=== PATIENT | female | born 1965 | race Caucasian/White ===

== ENCOUNTER 2016-07-08 03:13 | Inpatient (IN) | payer OTHER ==
[~2016-07-08] VITALS: Ht 157.5 cm; Wt 83.9 kg
[~2016-07-08 03:13] MED LIST: ARIPIPRAZOLE2 MG PO; BUPROPION XL150 MG PO; DIAZEPAM2 M1 PO; DICLOFENAC SODI75 M2 PO; ESCITALOPRAM OX20 MG PO; HYDROCHLOROTHIA25 M1 PO; HYDROCODON-ACE1 EAC3 PO; MELOXICAM15 M1 PO; METOPROLOL SUCC50 M2 PO; TRAZODONE HCL100 M1 PO
--- NOTE | 2016-07-08 09:40 | Operative Report ---
Operative/Inv Procedure Report Surgery Date: 07/08/16 Name of Procedure: Right total knee arthroplasty Pre-Operative Diagnosis: Right knee primary osteoarthritis Post-Operative Diagnosis: Same Estimated Blood Loss: less than 50ml Surgeon/Still Operator Helper: RADHA GOODWIN,Paulo MORALES Anesthesia: block Implants: Juan Antonio triathlon total knee system-size 3 femur, size 2 tibia, 11 mm polyethylene cruciate retaining, 27 patella Drains: None Specimens: Femoral, tibial, patellar bone Microbiology: Urinalysis Tourniquet: 56 minutes Complications: None Condition: Stable Operative Indication: Patient is a 50-year-old woman with a fairly long history of gradually worsening right knee symptoms that have interfere with normal activities of daily living. She underwent conservative measures including medications and injections and activity modification. Unfortunately she had persistent and increasing symptoms. This warranted discussion concerning total knee arthroplasty. Patient wished to proceed with this after discussion of risks, benefits and expectations which included but were not limited to persistent knee pain, need for subsequent surgery, infection, DVT, injury to blood vessel or nerve, anesthesia risks, wearing of the polyethylene secondary to her age and activity level. She wished to proceed with total knee arthroplasty. Operative/Procedure Note Note: Patient was brought to the operating room and transferred to the operating table. Once under appropriate anesthesia the right lower extremity was prepped and draped in standard fashion. Preoperative IV antibiotics were given prophylactically. Right lower extremity was elevated exsanguinated and tourniquet was inflated to 300 mm of pressure. A standard anterior incision was made for anticipated medial parapatellar approach the knee. Incision was taken down sharply to the retinaculum. A medial retinacular approach was used with a minimal extension into the quadriceps tendon. Osteophytes were excised. Patient had end-stage degenerative changes of the medial compartment and moderate changes the lateral compartment and mild changes of the patello femoral compartment. Osteophytes were excised laterally medially. I then flexed the knee and used the intramedullary drill to enter the distal femur for the intramedullary guide. Anticipated 6 valgus cut and 10 mm thickness cut was planned. This cut was made after protecting soft tissues. The femur was incised to a size 3. The chamfer cuts were made for a size 3 femur. I then turned my attention to the tibia. The external tibial alignment guide was used. Once I was satisfied with the alignment of the cutting jig, I protected soft tissues medially laterally and proceeded with my tibial cut. I recessed the PCL and excised remnants of the medial lateral meniscal tissues. The tibia was then sized to a size 2. The trial was then completed. I was satisfied with the stability of the knee and the soft tissue balancing though the definitive size of the trial polyethylene would be determined later on. Took the knee through range of motion. I prepared the patella after measuring and removing the appropriate thickness and replacement with a 27 patella. 3 lug holes were drilled in standard fashion. After taking the knee through range of motion, I marked the tibial rotation and drilled my 2 lug holes for the femur area and I removed all trial components. I finished preparation tibia with the tibial punch of the appropriate size. I then removed all trial components and instrumentation and copiously irrigated the tibial femoral and patellar surfaces. I did prepare the anterior chamfer bone that was removed from the femur to plug the distal femur to minimize postoperative hemarthrosis and swelling. Cement was being mixed on the back table. Once the cement was ready I applied to the dry clean bony surfaces of the tibia. The size 2 tibial component was impacted in place and excess cement was removed with curettes. Cement was applied to the dry clean bony surfaces of distal femur. The size 3 femur was impacted in place with all excess cement removed with curettes. I placed a 9 mm polyethylene insert and took the knee out to full extension. Cement was applied to the dry clean bony surfaces of the patella. The size 27 patella was impacted in place and excess cement was removed with a knife. As the cement was hardening I did a periarticular pericapsular injection of a cocktail which included ropivacaine with epinephrine and Toradol for postoperative pain and inflammation management. Once cement was hardening took the knee through range of motion. Small pieces of excess cement were removed with osteotome. I trialed a 11 mm insert as well. I was satisfied with this. I thought there was slight patellar tilt during my trialing and therefore I performed a lateral release in standard fashion from an extra articular vantage point. I was satisfied with the patellar tracking. I was satisfied with the 11 mm cruciate retaining polyethylene insert. I removed the trial and copiously irrigated the tibial tray to make sure there was no soft tissue, bone fragments or cement fragments within the tibial tray. Once this was confirmed I impacted the definitive size 11 mm cruciate retaining polyethylene in place and the locking mechanism was confirmed. The knee was ranged. Full extension. Full flexion to gravity without impingement. No evidence of mid flexion instability copious irrigation followed. Tourniquet was deflated at 56 minutes. Copious irrigation followed every level of closure. There was no need for a drain. Hemostasis was obtained with cautery. Retinaculum and minimal extension into the quadriceps tendon were closed with interrupted #1 Vicryl sutures. Subcutaneous tissues closed in 2 layers with 2-0 Vicryl and skin was closed with a running 3-0 Vicryl suture with the knee in flexion. Appropriate dressings were applied and patient was awakened and taken to recovery room in good condition. No intraoperative complications. Blood loss was less than 50 mL due to tourniquet Discharge Disposition: PACU
--- NOTE | 2016-07-08 13:00 | NUR ---
PT ARRIVED TO FLOOR VIA STRETCHER FROM PACU
--- NOTE | 2016-07-08 13:15 | PN- Orthopedic ---
Subjective Subjective: Post op check Awake, alert Has not been oob yet post op Pain well controlled after nerve block in recovery room No nausea, hungry Objective Vital Signs and I&Os VSS, afebrile Physical Exam: carmona output 250 in 2 hours General: alert and oriented times three chest: clear anteriorly bilaterally, RRR Abd: soft, good bs Ext: warm, no edema, positive sensate, good FARZANEH 5/5 RLE Wound: dressed, dry ice pack in place Assessment/Plan Assessment/Plan 50 yo female s/p R TKR pain mgmt - On Q PT - wbat coumadin 5 mg ordered dc carmona in am post op abx for 24 hrs Core Measures/Miscellaneous Carmona Catheter Date In: 07/08/16 Still Needed? Yes (post op 24 hrs) Venous Thromboembolism VTE Risk Factors: Age > 40, Surgery VTE Contraindications: No Contraindications VTE Prophylaxis Ordered Inpt: Mech & Pharm VTE Diagnosis: No Beta Eloy Is Beta Eloy a Home Med? Yes If Yes, Was This Ordered Today? Yes Antibiotics Is Patient on Antibiotics? Yes If Yes: prophylaxis (24 hrs post op)
[2016-07-08 13:22] VITALS: BP 92/60
[2016-07-08 14:55] VITALS: BP 100/60
[2016-07-08 15:51] VITALS: BP 108/64
[2016-07-08 17:49] VITALS: BP 106/72
[2016-07-08 19:42] VITALS: BP 112/62
[2016-07-08 21:26] VITALS: BP 128/70
[2016-07-09 01:39] VITALS: BP 128/70
[2016-07-09 07:31] VITALS: BP 130/70
--- NOTE | 2016-07-09 08:18 | PN- Orthopedic ---
See Addendum Subjective Subjective: NAEO. Patient states her nicotine patch is not enough. Also, she c/o seasonal allergies not well treated with Claritin. No further c/o. Pain controlled. PT attempted to ambulate patient yesterday but she was too unsteady. Tolerating PO without n/v. +flatus, no BM. Denies CP/SOB. Objective Vital Signs and I&Os Vital Signs Date Time Temp Pulse Resp B/P Pulse O2 O2 Flow FiO2 Ox Delivery Rate 07/09 0731 98.9 89 20 130/70 94 Room Air 07/09 0139 99.0 100 20 128/70 94 Room Air 07/08 2126 98.1 93 20 128/70 93 Room Air 07/08 1942 98.3 88 20 112/62 90 Room Air 07/08 1749 99.0 79 20 106/72 91 Room Air 07/08 1551 97.9 85 20 108/64 92 Room Air 07/08 1322 98.8 68 18 92/60 90 Room Air 07/08 1300 90 Room Air Intake & Output 07/09 1600 07/09 0800 07/09 0000 07/08 1600 07/08 0800 07/08 0000 Intake Total 960 Output Total 350 Balance 610 Intake, IV 600 Intake, Oral 360 Output, Urine 350 Patient 185 lb Weight Physical Exam: General: NAD, comfortable, A&Ox3 Chest: NRD, breathing comfortably on RA. RRR. Abdomen: soft, nontender, nondistended. Ext: Right knee dressing with 1 spot of strikethrough, otherwise, c/d/i. Right thigh On-Q pump in place. RLE compartments soft. No calve swelling/TTP, neurovascularly intact bilateral lower extremities Current Medications: Current Medications Sig/Carmen Start time Last Medication Dose Route Stop Time Status Admin Al Hydroxide/Mg 30 ML Q6P PRN 07/08 1315 AC Hydroxide PO Aripiprazole 2 MG DAILY 07/08 1000 AC PO Bupropion HCl 300 MG AT BEDTIME 07/080 AC 07/08 PO 2055 Bupropion HCl 150 MG DAILY 07/08 1000 AC PO Dextrose/Lactated 1,000 ML Q13H 07/08 1315 AC 07/08 Ringer's IV 2233 Diazepam 2 MG TID PRN 07/08 1000 AC PO Docusate Sodium 100 MG DAILY NEEDED PRN 07/08 1315 AC PO Escitalopram Oxalate 20 MG DAILY 07/09 1000 AC PO Hydrochlorothiazide 25 MG DAILY 07/08 1000 AC PO Hydromorphone HCl 2 MG .STK-MED ONE 07/08 1014 DC IM 07/08 1015 Loratadine 10 MG DAILY 07/08 1816 AC 07/08 PO 2055 Metoprolol Succinate 50 MG DAILY 07/08 1000 AC PO Morphine Sulfate 2 MG Q3P PRN 07/08 1315 AC IV Morphine Sulfate 4 MG Q1P PRN 07/08 1315 AC 07/09 IV 0202 Nicotine 14 MG DAILY 07/08 1000 AC 07/08 TOP 1637 Ondansetron HCl 4 MG Q6P PRN 07/08 1315 AC IV Oxycodone/ 1 TAB Q4P PRN 07/08 1315 AC Acetaminophen PO Oxycodone/ 2 TAB Q4P PRN 07/08 1315 AC 07/09 Acetaminophen PO 0622 Polyethylene Glycol 17 GM DAILY NEEDED PRN 07/08 1315 AC PO Ropivacaine 500 ML ONCE ONE 07/08 0845 DC ON-Q Ball 1 BAG INJ 07/10 1044 Senna/Docusate Sodium 2 TAB AT BEDTIME NEED.. 07/08 1315 AC PO Trazodone HCl 100 MG QPM 07/08 2200 AC 07/08 PO 2055 Vancomycin HCl 1,000 MG ONCE ONE 07/08 1900 DC 07/08 Dextrose/Water 250 ML IV 07/08 1959 1836 Vancomycin HCl 1,000 MG ONCE 07/08 0000 DC Dextrose/Water 250 ML IV 07/08 2359 Warfarin Sodium 5 MG COUMADIN 1700 ONE 07/08 1700 DC 07/08 PO 07/08 1701 1648 Assessment/Plan Assessment/Plan 50yo F POD#1 s/p right TKA. AVSS, patient stable. - Pain control - Bowel regimen - PRN zofran - Change claritin to zyrtec for allergies - I/O's - DC IVF - f/u a.m. labs - f/u INR, dose coumadin for INR 2-3 - increase nicotine patch dose - OOB and ambulate with PT, WBAT - will d/w attending Core Measures/Miscellaneous Salazar Catheter Date In: 07/08/16 Venous Thromboembolism VTE Risk Factors: Age > 40, Surgery VTE Contraindications: No Contraindications VTE Prophylaxis Ordered Inpt: Mech & Pharm VTE Diagnosis: No Beta Eloy Is Beta Eloy a Home Med? Yes If Yes, Was This Ordered Today? Yes Antibiotics Is Patient on Antibiotics? No
[2016-07-09 08:43] LABS: ABSOLUTE BASOPHIL COUNT 0 /CUMM (0.0-0.2); ABSOLUTE EOSINOPHIL COUNT 0 /CUMM (0.0-0.7); ABSOLUTE GRANULOCYTE CT 8.9 /CUMM (1.4-6.5); ABSOLUTE LYMPH COUNT 2.1 /CUMM (1.2-3.4); ABSOLUTE MONOCYTE COUNT 0.8 /CUMM (0.10-0.60); BASOPHIL % 0.2 % (0.0-2.0); EOSINOPHIL % 0 % (0-5); HEMATOCRIT 36.2 % (37-47); MEAN CORPUSCULAR HGB 33.8 PG (27.0-31.0); MEAN CORPUSCULAR VOLUME 99.5 FL (81.0-99.0); PLATELET COUNT 228 /CUMM (130-400); RED BLOOD CELL CT 3.64 /CUMM (4.20-5.40); WHITE BLOOD CELL COUNT 11.9 /CUMM (4.8-10.8)
[2016-07-09 08:55] LABS: PT 10.4 SEC (9.4-12.5)
[2016-07-09] MEDS ORDERED: COLACE100 M1 PO (09:02)
[2016-07-09] MEDS ORDERED: VICODIN 5-3001 EACH PO (09:02)
[2016-07-09] MEDS ORDERED: COUMADIN5 M2 PO (09:02)
--- NOTE | 2016-07-09 09:03 | Patient Discharge Instructions ---
Discharge Instructions General Discharge Information You were seen/treated for: Right knee primary OA/DJD You had these procedures: 07/08/16 Right total knee replacement Watch for these problems: Redness, swelling, fever, signs of infection. Uncontrolled pain, Excessive bleeding. Decreased range of motion or unable to bear weight. Chest pain, shortness of breath. Call Surgeon to remove: Pio Do not soak the wound: Yes No bath, but you may shower: Yes Other wound care: Daily dressing changes Diet Continue normal diet: Yes Activity Activity Self Limited: Yes Activity Limited to: Weight bear as tolerated Additional ACTIVITY Info: Daily physical therapy Acute Coronary Syndrome Inclusion Criteria At DC or during hospital stay patient has or had the following: ACS DIAGNOSIS No Discharge Core Measures Meds if any: Prescribed or Continued at Discharge Meds if any: NOT Prescribed or Continued at Discharge Congestive Heart Failure Inclusion Criteria At DC or during hospital stay patient has or had the following: CHF DIAGNOSIS No Discharge Core Measures Meds if any: Prescribed or Continued at Discharge Meds if any: NOT Prescribed or Continued at Discharge Cerebrovascular accident Inclusion Criteria At DC or during hospital stay patient has or had the following: CVA/TIA Diagnosis No Discharge Core Measures Meds if any: Prescribed or Continued at Discharge Meds if any: NOT Prescribed or Continued at Discharge Venous thromboembolism Inclusion Criteria VTE Diagnosis No VTE Type NONE VTE Confirmed by (Test) NONE Discharge Core Measures - Per Current guidelines, there needs to be overlap - treatment for the first 5 days of Warfarin therapy. - If discharged on Warfarin prior to 5 days of - overlap therapy, the patient will need to be - assessed for post discharge needs including - *Post discharge parental anticoagulation - *Warfarin and/or parental anticoagulation education - *Follow up date to check INR post discharge At least 5 days overlap therapy as Inpatient No Meds if any: Prescribed or Continued at Discharge Note: Overlap Therapy is Warfarin and Anticoagulant Meds if any: NOT Prescribed or Continued at Discharge
--- NOTE | 2016-07-09 09:08 | Discharge Summary ---
Visit Information Visit Dates Admission Date: 07/08/16 Discharge Date: 07/10/16 Hospital Course Course Attending Physician: ANDREW GARCIA MD Primary Care Physician: GAIL KULKARNI MD Hospital Course: Patient admitted to floor following procedure below. Patient ambulated with PT upon arrival to the floor. Patient continued to progress well. Upon discharge patient is afebrile, tolerating diet, pain controlled, ambulating well with rolling walker and PT. Complications: None Allergies: Coded Allergies: milnacipran (From SAVELLA) (07/01/16) moxifloxacin (From AVELOX) (07/01/16) Significant Procedures: 07/08/16 right total knee arthroplasty Disposition Summary Disposition Principal Diagnosis: Right knee primary DJD/OA Additional Diagnosis: None Discharge Disposition: home health services Discharge Instructions General Discharge Information Code Status: Full Code Patient's Diet: Resume normal diet Patient's Activity: Weightbearing as tolerated Daily physical therapy Follow-Up Instructions/Appts: Call office to schedule/confirm appointment Medications at Discharge Discharge Medications: Stop taking the following medications: Hydrocodone/Acetaminophen (Hydrocodon-Acetaminoph 7.5-325) 1 EACH TABLET ORAL DAILY as needed for PAIN Qty = 60 Continue taking these medications: Diazepam (Diazepam) 2 MG TABLET 1 Tablet ORAL 4 TIMES A DAY Qty = 21 Hydrochlorothiazide (Hydrochlorothiazide) 25 MG TABLET 1 Tablet ORAL DAILY Qty = 30 Bupropion HCl (Bupropion XL) 150 MG TAB.ER.24H 1 Tablet ORAL Every Morning Qty = 270 Bupropion HCl (Bupropion XL) 150 MG TAB.ER.24H 2 Tablet ORAL AT BEDTIME Qty = 270 Trazodone HCl (Trazodone HCl) 100 MG TABLET 1 Tablet ORAL Every night Qty = 90 Escitalopram Oxalate (Escitalopram Oxalate) 20 MG TABLET 1 Tablet ORAL DAILY Qty = 90 Aripiprazole (Aripiprazole) 2 MG TABLET 1 Tablet ORAL DAILY Qty = 90 Metoprolol Succinate (Metoprolol Succinate) 50 MG TAB.ER.24H 1 Tablet ORAL DAILY Qty = 30 Meloxicam (Meloxicam) 15 MG TABLET 1 Tablet ORAL DAILY Qty = 30 Diclofenac Sodium (Diclofenac Sodium) 75 MG TABLET.DR 1 Tablet ORAL TWICE DAILY Qty = 60 Start taking the following new medications: Warfarin Sodium (Coumadin) 5 MG TABLET 1 Tablet ORAL DAILY Qty = 14 No Refills Instructions: DOSE FOR INR 2-3 Docusate Sodium (Colace) 100 MG CAPSULE 1 Capsule ORAL TWICE DAILY as needed for CONSTIPATION Qty = 30 No Refills Hydrocodone/Acetaminophen (Vicodin Es 7.5-300 MG Tablet) 7.5 MG-300 MG TABLET 1-2 Tablet ORAL EVERY 4-6 HOURS NEEDED as needed for pain control Qty = 30 No Refills Instructions: take as directed. do not combine with tylenol. Copies To: CAYLA GOODWIN,GAIL [place]
[2016-07-09 09:35] VITALS: BP 118/70
[2016-07-09 14:24] VITALS: BP 122/84
[2016-07-09 22:40] VITALS: BP 140/80
[2016-07-10 06:30] VITALS: BP 150/76
[2016-07-10 07:37] VITALS: BP 150/76
[2016-07-10 08:01] LABS: ABSOLUTE BASOPHIL COUNT 0 /CUMM (0.0-0.2); ABSOLUTE EOSINOPHIL COUNT 0 /CUMM (0.0-0.7); ABSOLUTE LYMPH COUNT 2.4 /CUMM (1.2-3.4); ABSOLUTE MONOCYTE COUNT 0.7 /CUMM (0.10-0.60); BASOPHIL % 0.3 % (0.0-2.0); EOSINOPHIL % 0.1 % (0-5); HEMATOCRIT 35.5 % (37-47); MEAN CORPUSCULAR HGB 33.8 PG (27.0-31.0); MEAN CORPUSCULAR VOLUME 99.4 FL (81.0-99.0); MEAN PLATELET VOLUME 7.7 FL (7.4-10.4); PLATELET COUNT 234 /CUMM (130-400); RBC DISTRIBUTION WIDTH 13.2 % (11.5-14.5); RED BLOOD CELL CT 3.57 /CUMM (4.20-5.40); WHITE BLOOD CELL COUNT 13.1 /CUMM (4.8-10.8)
--- NOTE | 2016-07-10 08:16 | PN- Orthopedic ---
Subjective Subjective: Patient reporting no acute overnight events. She states that overall her pain is well controlled, but she is feeling increasing fatigue. She denies chest pain, shortness of breath, difficulty breathing. She denies nausea and vomiting. She has been out of bed ambulating with physical therapy, however she has yet to do stairs. She is eager to be discharged to home later today pending PT clearance. She has been voiding spontaneously, and she has moved her bowels. Objective Vital Signs and I&Os Vital Signs Date Time Temp Pulse Resp B/P Pulse O2 O2 Flow FiO2 Ox Delivery Rate 07/10 0737 87 150/76 07/10 0630 100.1 87 20 150/76 92 Room Air 07/10 0300 99.8 07/09 2240 100.6 85 20 140/80 94 07/09 1424 99.3 85 20 122/84 90 Room Air 07/09 1000 72 114/80 07/09 0935 98.7 79 20 118/70 96 Room Air Intake & Output 07/10 1600 07/10 0800 07/10 0000 07/09 1600 07/09 0800 07/09 0000 Intake Total 903 939 9953 1080 960 Output Total 388 079 9322 350 Balance 480 -320 1350 -170 610 Intake, IV 600 600 Intake, Oral 082 409 5692 480 360 Output, Urine 508 807 7985 350 Physical Exam: Gen.: Alert and oriented 3, no acute distress Cardiac: Regular rhythm and rate, S1s2 Pulmonary: Bilateral lung sounds clear to auscultation Abdomen: nonTender nondistended Extremities: Moves all extremities, distal sensation is grossly intact. Motor strength 5 out of 5 in plantar and dorsiflexion. Skin warm and well perfused. DP pulses palpable bilaterally. Bilateral calves soft and nontender. Surgical site. Right knee. Dressing dry and intact. Dressing changed today. Steri-Strips clean dry and intact. No drainage from incision. Mild erythema noted around incision, consistent with bruising. Dressing consisting of 4 x 4's and spandage reapplied. Assessment/Plan Assessment/Plan This is a 50-year-old female postoperative day 2 status post right total knee replacement. -Incentive spirometry encouraged -Continue current pain regimen -Follow-up a.m. labs, daily Coumadin, dose to INR between 2 and 3 -Continue out of bed, ambulation, physical therapy today -Plan for discharge to home today pending PT clearance -Will discuss with Cesar Komninakas, MD Core Measures/Miscellaneous Salazar Catheter Date In: 07/08/16 Venous Thromboembolism VTE Risk Factors: Age > 40, Surgery VTE Contraindications: No Contraindications VTE Prophylaxis Ordered Inpt: Mech & Pharm VTE Diagnosis: No Beta Eloy Is Beta Eloy a Home Med? Yes If Yes, Was This Ordered Today? Yes Antibiotics Is Patient on Antibiotics? No
[2016-07-10 08:22] LABS: PT 13.8 SEC (9.4-12.5)
--- NOTE | 2016-07-10 11:35 | RADIOLOGY REPORT ---
EXAMINATION: XR PORTABLE CHEST CLINICAL INFORMATION: Postoperative fever with leukocytosis. COMPARISON: None TECHNIQUE: Portable AP view of the chest was obtained. FINDINGS: Patient has a large body habitus. There are linear opacities of discoid atelectasis in the right and left lower lung. No airspace opacification, pulmonary edema or pleural effusion. Cardiac silhouette is normal in size. There is atherosclerotic calcification of the aortic arch. Bones are unremarkable. IMPRESSION: 1. No evidence of pneumonia. 2. There are linear opacities of discoid atelectasis within the lower lung zones.
[2016-07-10] MEDS ORDERED: VICODIN ES 7.51 EACH PO (13:28)
== END 2016-07-10 14:42 | disposition home health service (06) | DRG 470 ==
LOC: ENRESERVDT → ENRESERVTM → ENPENDDIS 03:13 → SDA 03:13 → 2NA 03:13 → SDA 07:00 → 2NA 12:46
PROVIDERS: Nurse Practitioner; Physician Assistant Surgical; ADMIT Orthopaedic Surgery
PROC: 0SRC0J9 Replacement of Right Knee Joint with Synthetic Substitute, Cemented, Open Approach (ICD-10-PCS; principal; 2016-07-08)
DX: M17.11 Unilateral primary osteoarthritis, right knee (principal); I10 Essential (primary) hypertension; F31.9 Bipolar disorder, unspecified; M79.7 Fibromyalgia; R53.82 Chronic fatigue, unspecified; F17.200 Nicotine dependence, unspecified, uncomplicated
CPT/HCPCS: 2NASP; 36415; 81001; 82436; 87086; 88305; 97110-GO; 97116-GO; 97161-GP; 97530-GO; C1713; J0171; J1885; J2405; J2795; J3370; J7060

== ENCOUNTER 2016-10-14 02:32 | Inpatient (IN) | payer OTHER ==
[~2016-10-14] VITALS: Ht 157.5 cm; Wt 82.6 kg
[~2016-10-14 02:32] MED LIST changes: +COLACE100 M1 PO; +COUMADIN5 M2 PO; +VICODIN 5-3001 EACH PO; +VICODIN ES 7.51 EACH PO
--- NOTE | 2016-10-14 10:28 | Operative Report ---
Operative/Inv Procedure Report Surgery Date: 10/14/16 Name of Procedure: Left total knee arthroplasty Pre-Operative Diagnosis: Left knee primary osteoarthritis Post-Operative Diagnosis: Same Estimated Blood Loss: less than 50ml Surgeon/Team Leader/Research Psychologist: RADHA GOODWIN,Paulo MORALES Anesthesia: block Implants: Juan Antonio triathlon total knee system Drains: None Specimens: Femoral, tibial, patellar bone Microbiology: Urine Tourniquet: 50 minutes Complications: None Condition: Stable Operative Indication: Patient is a 51-year-old woman with bilateral knee osteoarthritis. She had been treated for a long period of time with conservative measures. Unfortunately, as time went by her pain was not manageable with conservative treatment. She underwent right total knee arthroplasty in June. She recovered very well from this procedure and wanted to proceed with left total knee arthroplasty. Her x-rays showed severe osteoarthritis. Risks, benefits and expectations of the surgical procedure were discussed including but not limited to persistent knee pain, need for subsequent surgery, infection, DVT, injury to blood vessel or nerve, anesthesia risks. Operative/Procedure Note Note: Patient was brought to the operating room and transferred to the operating table. Once under appropriate anesthesia the left lower extremity was prepped and draped in standard fashion. Preoperative IV antibiotic's were given prophylactically. The left lower extremity was elevated exsanguinated and tourniquet was inflated. Standard anterior incision was made for anticipated medial parapatellar approach the knee. The incision was taken down sharply to the underlying retinaculum. A medial retinacular approach was used with minimal extension into the quadriceps tendon. Remnants of the medial lateral meniscal tissues were excised. Remnants of the ACL were excised. Retractors were placed medial and laterally. The drill was used to enter the intramedullary canal for the intramedullary guide for the distal femoral cut. 6 valgus cut was chosen. Cutting guide was placed and the soft tissues were protected and the distal femoral cut was made. The femur was then sized to a size 3. The size 3 cutting jig was and in place and the 4 cuts were made. I was satisfied with the preparation of distal femur. I then used an external tibial alignment guide and pin the cutting block for a neutral cut from medial to lateral and reproducing patient's posterior slow-paced on preoperative templating and intraoperative measurements. Soft tissues were protected medially laterally as well as posteriorly. The PCL retractor was placed and the PCL was recessed during this maneuver. The tibial cut was made. I then sized the tibia to a size 2. Trial was done with a size 2 tibia and a size 3 femur and a 9 mm polyethylene. I was satisfied with the symmetrical nature of the ligament balancing. I then turned my attention to the patella after osteophytes were excised from the posterior aspect of the knee in standard fashion using the osteotome followed by the curved curet. The patella was measured and the appropriate thickness was removed and then restored with a size 27 patella. The 3 lug holes were drilled and then the knee was taken through range of motion. I was satisfied with the stability and tracking of the patellofemoral articulation. I then removed all trial components after marking my rotation of tibia and drilled my 2 lug holes for the femur. I finished preparation of the tibia with the appropriate sized tibial punch. I then removed all instrumentation and copious irrigation the knee followed. I used the anterior chamfer bone of the distal femur to plug the hole in the femur to minimize postoperative hemarthrosis and postoperative swelling. Once the cement was ready it was applied to the dry clean bony surfaces of the tibia. The size 2 tibial component was impacted in place and excess cement was removed with curettes. Cement was applied to the dry clean bony surfaces of the distal femur and the size 3 femur was impacted in place and excess cement was removed with curettes. The 9 mm polyethylene was inserted and the knee was taken out to full extension pressurizing the bone cement interfaces. I then applied distal cement to the dry clean bony surfaces of the patella and the size 27 patella was impacted in place and excess cement was removed with a knife. As the cement was hardening I did a periarticular pericapsular injection of a cocktail which included ropivacaine with epinephrine and Toradol for postoperative pain and inflammation management. Once the cement hardened I took the knee through range of motion. Copious irrigation the knee followed. I also trial 11 mm polyethylene insert. I was satisfied with the full extension mid flexion stability and full flexion to gravity. I then removed the trial polyethylene and copiously irrigated tibial tray. I impacted the definitive size 11 mm cruciate retaining polyethylene insert. The locking mechanism was confirmed. Again I was satisfied with the stability in full extension mid flexion and full flexion to gravity. I was also satisfied with the patellofemoral tracking. No need for a lateral release. This was confirmed after the tourniquet was deflated. The tourniquet was deflated at 50 minutes. Hemostasis was obtained. No need for a drain. I then closed the retinacular incision and minimal extension into the quadriceps tendon with interrupted #1 Vicryl sutures. Subcutaneous tissues closed in 2 layers with 2-0 Vicryl and skin was closed with 3-0 Vicryl suture with the knee in flexion. Appropriate dressings were applied and patient was awakened and taken to recovery room in good condition. No intraoperative complications. Discharge Disposition: PACU
[2016-10-14 16:00] VITALS: BP 134/80
--- NOTE | 2016-10-14 16:00 | NUR ---
RECEIVED FROM PACU: ALERT ORIENTED X3. VSS. SETTLED INTO ROOM. BARGER TO BEDSIDE DRAINAGE. DRESSING INTACT TO LEFT KNEE. DURACOLD ON. ON-Q PUMP 8 ML/HR TO LEFT ADDUCTOR. REVIEWED POC. CALL SAMUELS IN REACH. SEE NURSING ASSESSMENT FLOWSHEETS FOR FURTHER DOCUMENTATION.
--- NOTE | 2016-10-14 16:41 | PN- Orthopedic ---
See Addendum Subjective Subjective: POSTOP CHECK + pain lle, no n/v/cp/sob, some briones, no OOB yet, no le parasthesias Objective Vital Signs and I&Os Vital Signs Date Time Temp Pulse Resp B/P B/P Pulse O2 O2 Flow FiO2 Mean Ox Delivery Rate /05 1600 98.4 80 18 134/80 96 Nasal 2.0L Cannula Physical Exam: Physical Exam: GEN: NAD CARD: s1s2 RRR PULM: CTAB ABD: soft nt EXT: LLE palp pulses, dressing CDI, ONQ in place, +dorsi/plantar flexion, sensation intact/equal bl Assessment/Plan Assessment/Plan A: POD0 sp L TKR, stable, with appropriate postop pain and briones. P: OOB with PT DC carmona in am coum per INR prn pain meds dc planning Core Measures/Miscellaneous Venous Thromboembolism VTE Risk Factors: Surgery VTE Contraindications: No Contraindications VTE Diagnosis: No Beta Eloy Is Beta Eloy a Home Med? No Antibiotics Is Patient on Antibiotics? No
[2016-10-14 18:30] VITALS: BP 130/84
[2016-10-14 20:30] VITALS: BP 130/70
[2016-10-14 22:21] VITALS: BP 128/89
[2016-10-15 02:17] VITALS: BP 118/70
[2016-10-15 06:00] VITALS: BP 112/64
[2016-10-15 08:40] LABS: PT 11.2 SEC (9.4-12.5)
[2016-10-15 08:47] LABS: ABSOLUTE BASOPHIL COUNT 0 /CUMM (0.0-0.2); ABSOLUTE EOSINOPHIL COUNT 0 /CUMM (0.0-0.7); ABSOLUTE GRANULOCYTE CT 10.5 /CUMM (1.4-6.5); ABSOLUTE LYMPH COUNT 1.4 /CUMM (1.2-3.4); ABSOLUTE MONOCYTE COUNT 0.7 /CUMM (0.10-0.60); BASOPHIL % 0.3 % (0.0-2.0); EOSINOPHIL % 0 % (0-5); HEMATOCRIT 37.1 % (37-47); MEAN CORPUSCULAR HGB 33.3 PG (27.0-31.0); MEAN CORPUSCULAR HGB CONC 33.8 G/DL (33.0-37.0); MEAN CORPUSCULAR VOLUME 98.8 FL (81.0-99.0); MEAN PLATELET VOLUME 7.6 FL (7.4-10.4); PLATELET COUNT 230 /CUMM (130-400); RBC DISTRIBUTION WIDTH 13.7 % (11.5-14.5); RED BLOOD CELL CT 3.76 /CUMM (4.20-5.40); WHITE BLOOD CELL COUNT 12.6 /CUMM (4.8-10.8)
--- NOTE | 2016-10-15 09:21 | PN- Orthopedic ---
See Addendum Subjective Subjective: Patient complaining of pain posterior left knee at present but otherwise doing well. Denies chest pain, shortness of breath and difficulty breathing. Denies nausea and vomitting. Salazar catheter dc approximately 1 hour ago, yet to void. Objective Vital Signs and I&Os Vital Signs Date Time Temp Pulse Resp B/P B/P Pulse O2 O2 Flow FiO2 Mean Ox Delivery Rate 10/15 06 98.7 78 16 112/64 94 Nasal 2.0L Cannula 10/15 0217 98.0 82 18 118/70 90 Nasal 2.0L Cannula / 0000 93 Nasal 2.0L Cannula / 2221 98.1 88 18 128/89 93 Nasal 2.0L Cannula / 2030 98.4 88 18 130/70 94 Nasal 2.0L Cannula / 1830 98.2 87 18 130/84 92 Nasal 2.0L Cannula / 1600 95 Nasal 2.0L Cannula / 1600 96 Nasal 2.0L Cannula / 1600 98.4 80 18 134/80 96 Nasal 2.0L Cannula Intake & Output 10/15 1600 / 0800 / 0000 06/05 1600 / 0800 06/ 0000 Intake Total 800 600 Output Total 1400 Balance -600 600 Intake, IV 600 300 Intake, Oral 200 300 Output, Urine 1400 Patient 182 lb Weight Weight Reported by Patient Measurement Method Physical Exam: General: Alert and oriented x3, no acute distress Cards: rrr, s1s2 Pulm: CTA bilaterally Abd: Non-distended Extremities: General, neurovascular intact, calves soft non-tender bilaterally. D Surgical site: Left knee, dressing dry and intact Assessment/Plan Assessment/Plan POD 1, s/p l tkr -oob with pt today -dc iv fluids -void pending, continue po intake -f/u labs, inr, dose coumadin, target inr 2-3 -nasal spray/claritin for nasal congestion -continue diet as tolerated -will d/w Dr. Dillon Core Measures/Miscellaneous Venous Thromboembolism VTE Risk Factors: Surgery VTE Contraindications: No Contraindications VTE Diagnosis: No Beta Eloy Is Beta Eloy a Home Med? No Antibiotics Is Patient on Antibiotics? No
[2016-10-15 10:00] VITALS: BP 120/66
[2016-10-15 14:17] VITALS: BP 125/70
--- NOTE | 2016-10-15 15:16 | Patient Discharge Instructions ---
Discharge Instructions General Discharge Information You were seen/treated for: LEFT KNEE DJD You had these procedures: LEFT TOTAL KNEE ARTHROPLASTY Watch for these problems: TEMP>101.5, INCREASED WOUND DRAINAGE/REDNESS, INCREASED PAIN Call Surgeon to remove: Pio No bath, but you may shower: Yes Other wound care: DRY STERILE TO LEFT KNEE DAILY KEEP WOUND CLEAN AND DRY Diet Continue normal diet: Yes Recommended Diet: Regular Activity Activity Limited to: Weight bear as tolerated Acute Coronary Syndrome Inclusion Criteria At DC or during hospital stay patient has or had the following: ACS DIAGNOSIS No Discharge Core Measures Meds if any: Prescribed or Continued at Discharge Meds if any: NOT Prescribed or Continued at Discharge Congestive Heart Failure Inclusion Criteria At DC or during hospital stay patient has or had the following: CHF DIAGNOSIS No Discharge Core Measures Meds if any: Prescribed or Continued at Discharge Meds if any: NOT Prescribed or Continued at Discharge Cerebrovascular accident Inclusion Criteria At DC or during hospital stay patient has or had the following: CVA/TIA Diagnosis No Discharge Core Measures Meds if any: Prescribed or Continued at Discharge Meds if any: NOT Prescribed or Continued at Discharge Venous thromboembolism Inclusion Criteria VTE Diagnosis No VTE Type NONE VTE Confirmed by (Test) NONE Discharge Core Measures - Per Current guidelines, there needs to be overlap - treatment for the first 5 days of Warfarin therapy. - If discharged on Warfarin prior to 5 days of - overlap therapy, the patient will need to be - assessed for post discharge needs including - *Post discharge parental anticoagulation - *Warfarin and/or parental anticoagulation education - *Follow up date to check INR post discharge At least 5 days overlap therapy as Inpatient No Meds if any: Prescribed or Continued at Discharge Warfarin Yes Overlap Therapy No Note: Overlap Therapy is Warfarin and Anticoagulant Meds if any: NOT Prescribed or Continued at Discharge No Overlap Therapy d/t Warfarin therapy started
[2016-10-15] MEDS ORDERED: OXYCODONE HCL5 M1 PO (15:24)
[2016-10-15] MEDS ORDERED: MIRALAX119 GM PO (15:24)
[2016-10-15] MEDS ORDERED: OXYCONTIN10 M1 PO (15:24)
[2016-10-15] MEDS ORDERED: COUMADIN5 M2 PO (15:24)
[2016-10-15] MEDS ORDERED: SENNA PLUS TAB1 EACH PO (15:24)
--- NOTE | 2016-10-15 15:32 | Discharge Summary ---
Visit Information Visit Dates Admission Date: 10/14/16 Discharge Date: 10/16/16 Hospital Course Course Attending Physician: ANDREW GARCIA MD Primary Care Physician: CAYLA GOODWIN,GAIL [place] Hospital Course: Ms. Shultz is a 51-year-old female who after failed conservative treatment for left knee DJD into the operating room on 10/14/2016 and underwent left total knee arthroplasty. She tolerated procedure well was transferred to the floor she was out of bed postop day 1 with physical therapy however complained of increased left knee pain with ambulation. Or this a long-acting narcotic OxyContin 10 mg twice a day was added to her pain regime which gave her adequate relief. Ms. Shultz is a known pain management patient who is on hydrocodone 7.5 mg at home. However with her knee arthroplasty surgery she will continue her hospital pain regime for no more than a week and follow-up with her pain management doctor to adjust her meds. Her hospital stays otherwise unremarkable Allergies: Coded Allergies: milnacipran (From SAVELLA) (07/01/16) moxifloxacin (From AVELOX) (07/01/16) Significant Procedures: Left total knee arthroplasty Pertinent Lab Results: Daily INR Disposition Summary Disposition Principal Diagnosis: Primary left knee degenerative arthritis Additional Diagnosis: None Discharge Disposition: home health services Discharge Instructions General Discharge Information Code Status: Full Code Patient's Diet: Regular diet Patient's Activity: May be weightbearing as tolerated left lower extremity Follow-Up Instructions/Appts: Daily INRs will be drawn by home health agency and results will be sent to Dr. Jayson roberts's office for Coumadin dosages. Dry sterile dressing to left knee daily with wound checks All of the concerns retracted to Dr. Braxton Liu orthopedics She will be discharged with home health services Medications at Discharge Discharge Medications: Stop taking the following medications: Diclofenac Sodium (Diclofenac Sodium) 75 MG TABLET. ORAL TWICE DAILY Qty = 60 Hydrocodone/Acetaminophen (Vicodin Es 7.5-300 MG Tablet) 7.5 MG-300 MG TABLET ORAL EVERY 4-6 HOURS NEEDED as needed for pain control Qty = 30 Continue taking these medications: Diazepam (Diazepam) 2 MG TABLET 1 Tablet ORAL 4 TIMES A DAY Qty = 21 Comments: Last Taken: 10/16/16 Time: 5AM Hydrochlorothiazide (Hydrochlorothiazide) 25 MG TABLET 1 Tablet ORAL DAILY Qty = 30 Comments: Last Taken: 10/16/16 Time: 5AM Bupropion HCl (Bupropion XL) 150 MG TAB.ER.24H 1 Tablet ORAL Every Morning Qty = 270 Comments: Last Taken: 10/16/16 Time: 5PM Bupropion HCl (Bupropion XL) 150 MG TAB.ER.24H 2 Tablet ORAL AT BEDTIME Qty = 270 Comments: Last Taken: 10/15/16 Time: 9PM Trazodone HCl (Trazodone HCl) 100 MG TABLET 1 Tablet ORAL Every night Qty = 90 Comments: Last Taken: 10/16/16 Time: 10 PM Escitalopram Oxalate (Escitalopram Oxalate) 20 MG TABLET 1 Tablet ORAL DAILY Qty = 90 Comments: Last Taken: 10/16/16 Time: 5AM Aripiprazole (Aripiprazole) 2 MG TABLET 1 Tablet ORAL DAILY Qty = 90 Comments: Last Taken: Time: 5AM Metoprolol Succinate (Metoprolol Succinate) 50 MG TAB.ER.24H 1 Tablet ORAL DAILY Qty = 30 Comments: Last Taken: 10/16/16 Time: 5AM Start taking the following new medications: Warfarin Sodium (Coumadin) 5 MG TABLET 1 Tablet ORAL DAILY Qty = 30 No Refills Instructions: CHECK WITH DR GAMINO FOR COUMADIN DOSES PER BLOOD DRAWS Comments: Last Taken:10/15/16 Time:5PM Oxycodone HCl (Oxycontin) 10 MG TAB.ER.12H 1 Tablet ORAL EVERY 12 HOURS Qty = 8 No Refills Comments: Last Taken:10/16/16 Time:4PM Oxycodone HCl (Oxycodone HCl) 5 MG TABLET 1-2 Tablet ORAL EVERY 4-6 HOURS NEEDED as needed for PAIN SCALE 4-6 ( MODERATE) Qty = 36 No Refills Comments: Last Taken:10/16/16 Time:5AM Polyethylene Glycol 3350 (Miralax) 17 GRAM/DOSE POWDER 1 PACKET ORAL DAILY NEEDED as needed for NO BM IN TWO DAYS Qty = 10 No Refills Comments: Last Taken: Time:NOT GIVEN ON THIS ADMISSION Sennosides/Docusate Sodium (Senna Plus Tablet) 8.6 MG-50 MG TABLET 2 Tablet ORAL Every night as needed for NO BM IN TWO DAYS Qty = 30 No Refills Comments: Last Taken: Time:NOT GIVEN ON THIS ADMISSION Copies To: RADHA GOODWIN,ANDREW
[2016-10-15 22:31] VITALS: BP 130/80
[2016-10-16 06:09] VITALS: BP 128/74
[2016-10-16 07:47] LABS: ABSOLUTE BASOPHIL COUNT 0 /CUMM (0.0-0.2); ABSOLUTE EOSINOPHIL COUNT 0 /CUMM (0.0-0.7); ABSOLUTE GRANULOCYTE CT 9.1 /CUMM (1.4-6.5); ABSOLUTE LYMPH COUNT 2.6 /CUMM (1.2-3.4); ABSOLUTE MONOCYTE COUNT 0.8 /CUMM (0.10-0.60); BASOPHIL % 0.2 % (0.0-2.0); EOSINOPHIL % 0.1 % (0-5); GRANULOCYTE % 72.6 % (42.2-75.2); HEMATOCRIT 36.1 % (37-47); MEAN CORPUSCULAR HGB 33.1 PG (27.0-31.0); MEAN CORPUSCULAR HGB CONC 33.4 G/DL (33.0-37.0); MEAN CORPUSCULAR VOLUME 99.1 FL (81.0-99.0); MEAN PLATELET VOLUME 7.9 FL (7.4-10.4); PLATELET COUNT 225 /CUMM (130-400); RBC DISTRIBUTION WIDTH 13.8 % (11.5-14.5); RED BLOOD CELL CT 3.64 /CUMM (4.20-5.40); WHITE BLOOD CELL COUNT 12.6 /CUMM (4.8-10.8)
[2016-10-16 08:11] LABS: PT 15.3 SEC (9.4-12.5)
--- NOTE | 2016-10-16 08:52 | RADIOLOGY REPORT ---
EXAMINATION: XR KNEE, LEFT CLINICAL INFORMATION: Status post left total knee arthroplasty. COMPARISON: Left knee MRI 09/29/2015. TECHNIQUE: Two views of the left knee. FINDINGS: There are expected postoperative changes of a left total knee arthroplasty. Hardware is intact. No dislocation. Small foci of soft tissue gas are consistent with recent surgery. IMPRESSION: Expected postoperative changes of a left total knee arthroplasty.
--- NOTE | 2016-10-16 10:52 | PN- Orthopedic ---
Subjective Subjective: No acute overnight events reported. Pain under control. Denies chest pain, shortness of breath and difficulty breathing. Denies nausea and vomitting. Has been voiding. Cleared pt. Anticipates discharge to home today. Objective Vital Signs and I&Os Vital Signs Date Time Temp Pulse Resp B/P B/P Pulse O2 O2 Flow FiO2 Mean Ox Delivery Rate 10/16 0609 99.1 85 18 128/74 93 Room Air 10/16 0517 84 130/90 10/15 2231 99.0 92 20 130/80 95 Room Air 10/15 1417 97.2 82 20 125/70 98 Intake & Output 10/16 1600 10/16 0800 / 0000 10/15 1600 10/15 0800 10/15 0000 Intake Total 250 250 850 800 600 Output Total 1152 1400 Balance 250 250 -302 -600 600 Intake, IV 150 600 300 Intake, Oral 250 250 700 200 300 Output, Stool 2 Output, Urine 1150 1400 Patient 182 lb Weight Weight Reported by Patient Measurement Method Physical Exam: General: Alert and oriented x3, no acute distress Cardiac; RRR, s1s2 Pulm: CTA bilaterally Abd: Non-distended Extremities: Moves all extremities, neurovascular status intact. Skin dry and warm. Bilateral calves soft and non-tender. Surgical site: Left knee. Dressing changed. Skin edges well approximated. No drainage. Bruising noted lateral to incision. Clean dry dressing reapplied. Assessment/Plan Assessment/Plan This is a 51 year old female, POD 2, s/p left TKR, doing well -Continue current pain regimen -Cleared pt, is able to be discharged to home -Continue diet as tolerated -DVT ppx: Coumadin 5 today -Incentive spirometer encouraged -Will d/w Dr. Dillon Core Measures/Miscellaneous Venous Thromboembolism VTE Risk Factors: Surgery VTE Contraindications: No Contraindications VTE Diagnosis: No Beta Eloy Is Beta Eloy a Home Med? No Antibiotics Is Patient on Antibiotics? No
== END 2016-10-16 11:26 | disposition home health service (06) | DRG 470 ==
LOC: SDA 02:32 → 2NA 02:32 → ENRESERV 13:07 → ENTRNSPT 14:50 → 2NA 15:53 → CMPTRNSPT 18:33 → ENPENDDIS 10-16 10:46 → 2NA 10-16 11:26
PROVIDERS: Physician Assistant; Physician Assistant Surgical; ADMIT Orthopaedic Surgery
PROC: 0SRD0J9 Replacement of Left Knee Joint with Synthetic Substitute, Cemented, Open Approach (ICD-10-PCS; principal; 2016-10-14)
DX: M17.12 Unilateral primary osteoarthritis, left knee (principal); I10 Essential (primary) hypertension; J44.9 Chronic obstructive pulmonary disease, unspecified; M79.7 Fibromyalgia; F17.200 Nicotine dependence, unspecified, uncomplicated; K58.9 Irritable bowel syndrome, unspecified; F41.8 Other specified anxiety disorders; E66.9 Obesity, unspecified; Z68.33 Body mass index [BMI] 33.0-33.9, adult
CPT/HCPCS: 2NAP; 73560-LT; 82436; 87086; 88305; 97110-GO; 97116-GO; 97161-GP; 97530-GO; C1713; J0131; J0171; J1885; J2405; J2795; J3370; J7040